=== PATIENT | female | born 1980 | race Caucasian/White ===

== ENCOUNTER 2018-06-15 19:20 | Emergency (ER) | payer BC, OTHER ==
[2018-06-15 19:26] VITALS: BP 114/63; PULSE 77; TEMP 98.7; BMI 38.0
--- NOTE | 2018-06-15 19:34 | PDOC ---
History of Present Illness - General History Source: Patient, Significant Other Exam Limitations: No Limitations - History of Present Illness Initial Comments: 06/15/18 19:50 The patient is a 37 year old female, with no significant PMH, who presents to the emergency department via walk-in with right ankle pain. The patient states she was at a friends house earlier today when she misstepped and twisted her right ankle. The patient states she was able to walk on her own and drive home s /p twisting her right ankle but reports pain with ambulation. The patient states when she returned home she iced and elevated her right ankle and experienced a pins and needles sensation in the right foot. The patient states she has sprained her right ankle many times in the past from basketball but has never experienced the pins and needles sensation so quickly after icing the injury so she decided to come to the ED for evaluation. The patient denies chest pain, shortness of breath, headache and dizziness. Denies fever, chills, nausea, vomit, diarrhea and constipation. Denies dysuria, frequency, urgency and hematuria. Allergies: NKA <Thomas Gallo - Last Filed: 06/15/18 21:00> <Anisha Salter - Last Filed: 06/16/18 00:02> - General Chief Complaint: Injury Stated Complaint: RT ANKLE INJURY Time Seen by Provider: 06/15/18 19:21 Past History <Thomas Gallo - Last Filed: 06/15/18 21:00> - Past Medical History COPD: No Other medical history: PT DENIES - Suicide/Smoking/Psychosocial Hx Smoking History: Never smoked Have you smoked in the past 12 months: No Information on smoking cessation initiated: No Hx Alcohol Use: No Substance Use Type: None <Anisha Salter - Last Filed: 06/16/18 00:02> - Past Medical History Allergies/Adverse Reactions: Allergies Allergy/AdvReac Type Severity Reaction Status Date / Time No Known Allergies Allergy Verified 06/15/18 19:22 Home Medications: Ambulatory Orders Ibuprofen 800 mg PO ONCE 06/15/18 Review of Systems - Review of Systems Comments:: 06/15/18 19:50 GENERAL/CONSTITUTIONAL: No fever or chills. No weakness. HEAD, EYES, EARS, NOSE AND THROAT: No change in vision. No ear pain or discharge. No sore throat. CARDIOVASCULAR: No chest pain or shortness of breath. RESPIRATORY: No cough, wheezing, or hemoptysis. GASTROINTESTINAL: No nausea, vomiting, diarrhea or constipation. GENITOURINARY: No dysuria, frequency, or change in urination. MUSCULOSKELETAL: +Right ankle pain. No neck or back pain. SKIN: No rash NEUROLOGIC: +Pins and needles sensation right ankle/ right foot. No headache, vertigo, loss of consciousness. ENDOCRINE: No increased thirst. No abnormal weight change. HEMATOLOGIC/LYMPHATIC: No anemia, easy bleeding, or history of blood clots. ALLERGIC/IMMUNOLOGIC: No hives or skin allergy. <Thomas Gallo - Last Filed: 06/15/18 21:00> *Physical Exam - Vital Signs Last Vital Signs Temp Pulse Resp BP Pulse Ox 98.7 F 77 16 114/63 99 06/15/18 19:20 06/15/18 19:20 06/15/18 19:20 06/15/18 19:20 06/15/18 19:20 - Physical Exam Comments: 06/15/18 20:17 GENERAL: Awake, alert, and fully oriented, in no acute distress HEAD: No signs of trauma EYES: PERRLA, EOMI, sclera anicteric, conjunctiva clear EXTREMITIES: (+) Right lower extremity normal until the ankle where this is moderate edema lateral of the malleolus with tenderness superior and medial to the malleolus. There is no ligamentous instability of the ankle joint. There is a strongly palpable pulse at the midfoot; distal foot, foot is warm with good capillary refill. Neurovascular intact. (+) Mild tenderness at the base of the 5th metatarsal. No ecchymosis or deformity noted in the ankle or foot. No clubbing or cyanosis. NEUROLOGICAL: Cranial nerves II through XII grossly intact. Normal speech. SKIN: Warm, Dry, normal turgor, no rashes or lesions noted. <Thomas Gallo - Last Filed: 06/15/18 21:00> - Vital Signs Last Vital Signs Temp Pulse Resp BP Pulse Ox 98.7 F 77 16 114/63 99 06/15/18 19:20 18 19:20 06/15/18 19:20 06/15/18 19:20 06/15/18 19:20 <Anisha Salter - Last Filed: 06/16/18 00:02> Progress Note - Progress Note Progress Note: Documentation has been prepared under my direction and personally reviewed by me in its entirety. I attest that this documented accurately reflects all work, treatment, procedures and medical decision making performed by me. <Anisha Salter - Last Filed: 06/16/18 00:02> Medical Decision Making - Medical Decision Making As noted above, this 37-year-old woman with no significant past medical history but multiple episodes of ankle sprains bilaterally presents with history of turning her right ankle earlier today when she missed a step. Since then, she has had pain on weightbearing and plantar flexion of the right foot. The lateral malleolus of the ankle has become moderately edematous and mildly tender ; there has been no ecchymosis or deformity in the ankle or foot. Exam as noted. X-rays of the right ankle/foot performed. Preliminary interpretation by me-no evidence of fracture or dislocation. Clinical presentation most consistent with ankle sprain. Dipak wrap applied followed by ankle stirrup splint (Velcro attached). The patient will be given crutches; because of her previous history of ankle sprains, she is comfortable with crutch ambulation. This was demonstrated prior to discharge when she was able to ambulate without difficulty using the crutches. Meanwhile, the patient should elevate and ice the elbow/foot area as much as possible over the next 2 days. She should follow-up with her orthopedist, if she has prolonged swelling/pain in the ankle or foot <Anisha Salter - Last Filed: 06/16/18 00:02> *DC/Admit/Observation/Transfer - Attestations Scribe Attestion: 06/15/18 19:51 Documentation prepared by Thomas Gallo, acting as medical care evaluation specialist for Anisha Salter MD. <Thomas Gallo - Last Filed: 06/15/18 21:00> <Anisha Salter - Last Filed: 06/16/18 00:02> Diagnosis at time of Disposition: Ankle sprain Qualifiers: Encounter type: initial encounter Involved ligament of ankle: tibiofibular ligament Laterality: right Qualified Code(s): S93.431A - Sprain of tibiofibular ligament of right ankle, initial encounter - Discharge Dispostion Disposition: HOME Condition at time of disposition: Stable - Referrals Referrals: Alisa Eubanks MD [Primary Care Provider] - Simeon Denton MD [Staff Physician] - - Patient Instructions Printed Discharge Instructions: Ankle Sprain Additional Instructions: elevate and ice to ankle as much as possible for the next 2 days Ankle splint during day for the next 5-7 days/Dipak wrap during the day as needed crutches as needed for ambulation for the next 3 days Ibuprofen/naproxen as needed for pain If you continue to have pain/swelling for more than 7-10 days, follow-up with Dr. Denton Return to ER as needed - Post Discharge Activity
== END 2018-06-15 20:56 | disposition home or self-care (01) ==
LOC: FER 19:20
PROC: 2W3QX1Z Immobilization of Right Lower Leg using Splint (ICD-10-PCS; principal; 2018-06-15)
DX: S93.431A Sprain of tibiofibular ligament of right ankle, initial encounter (principal); X58.XXXA Exposure to other specified factors, initial encounter; Y93.89 Activity, other specified; Y92.9 Unspecified place or not applicable
CPT/HCPCS: 73610-TC-RT-FY; 73630-TC-RT-FY; 84703; 99283-25

== ENCOUNTER 2021-03-27 01:12 | Inpatient (IN) | payer BC ==
[2021-03-27] MEDS ORDERED: FAMOTIDINE 20 MG/50 ML IVPB 20 MG/50 ML MG IVPB ONE ×4 (01:16→14:10)
[2021-03-27] MEDS ORDERED: DEXAMETHASONE SOD PHOSPHATE 10 MG/1 ML VIAL ONE (01:16)
[2021-03-27] MEDS ORDERED: DEXAMETHASONE SOD PHOSPHATE 10 MG/1 ML VIAL IVPUSH ONE (01:16)
[2021-03-27] MEDS ORDERED: EPINEPHrine 1:1,000 0.3 MG/0.3 ML SYR IM ONE (01:16)
[2021-03-27] MEDS ORDERED: EPINEPHrine 1:10,000 (P-F SYR) 1 MG/10 ML DISP.SYRIN ONE (01:27)
[2021-03-27 01:28] VITALS: BMI 30.4
[2021-03-27 01:30] LABS: BASO % 0.7 % (0-2.0); EOS % 0.6 % (0-4.5); HEMATOCRIT 44.8 % (32.4-45.2); HEMOGLOBIN 15.4 GM/dL (10.7-15.3); LYMPH % 50.2 % (8-40); MCH 31.2 pg (25.7-33.7); MCHC 34.4 g/dl (32.0-36.0); MEAN CELL VOLUME 90.8 fl (80-96); MEAN PLT VOLUME 8.3 fl (7.5-11.1); MONO % 5.3 % (3.8-10.2); NEUT % 43.2 % (42.8-82.8); PLATELET COUNT 294 K/MM3 (134-434); RBC 4.93 M/mm3 (3.60-5.2); WHITE BLOOD COUNT 9.8 K/mm3 (4.0-10.0)
[2021-03-27] MEDS ORDERED: SODIUM CHLORIDE 0.9% 500 ML INFUS.BAG IV ONE (01:33)
[2021-03-27 01:35] LABS: INR 0.97 (0.83-1.09); PROTHROMBIN TIME (PATIENT) 11.7 SEC (9.7-13.0)
[2021-03-27 01:37] LABS: ACTIVATED PTT 25.6 SECONDS (25.2-36.5)
[2021-03-27 01:50] LABS: CHLORIDE 111 mmol/L (98-107); SODIUM 136 mmol/L (136-145)
[2021-03-27 01:52] LABS: ALBUMIN 3.6 g/dl (3.4-5.0); BLOOD UREA NITROGEN 13.2 mg/dL (7-18); CO2 20 mmol/L (21-32)
[2021-03-27 01:53] LABS: GLUCOSE,RANDOM 95 mg/dL (74-106)
[2021-03-27 01:55] LABS: SGOT/AST 47 U/L (15-37); SGPT/ALT 28 U/L (13-61)
[2021-03-27 01:56] LABS: CREATININE 0.7 mg/dL (0.55-1.3)
[2021-03-27 01:57] LABS: BILIRUBIN,TOTAL 0.2 mg/dL (0.2-1); TOT PROT 7.8 g/dl (6.4-8.2)
[2021-03-27 01:58] LABS: ALK PHOS 77 U/L (45-117)
[2021-03-27] MEDS ORDERED: EPINEPHrine 1:10,000 (P-F SYR) 1 MG/10 ML DISP.SYRIN IVPUSH ONE ×2 (02:00→02:12)
[2021-03-27 02:14] LABS: ANION GAP 5 MMOL/L (8-16)
[2021-03-27] MEDS ORDERED: SODIUM CHLORIDE 1,000 ML IV SCH (03:30)
[2021-03-27 03:56] LABS: BLOOD UREA NITROGEN 13.1 mg/dL (7-18); CALCIUM 7.8 mg/dL (8.5-10.1)
[2021-03-27 03:59] LABS: CREATININE 0.8 mg/dL (0.55-1.3)
[2021-03-27 06:03] LABS: BASO % 0.1 % (0-2.0); HEMATOCRIT 38.6 % (32.4-45.2); HEMOGLOBIN 13.6 GM/dL (10.7-15.3); LYMPH % 6.2 % (8-40); MCH 31.4 pg (25.7-33.7); MCHC 35.1 g/dl (32.0-36.0); MEAN CELL VOLUME 89.4 fl (80-96); MEAN PLT VOLUME 7.9 fl (7.5-11.1); MONO % 1.8 % (3.8-10.2); NEUT % 91.9 % (42.8-82.8); PLATELET COUNT 241 K/MM3 (134-434); RBC 4.32 M/mm3 (3.60-5.2); RDW 13.2 % (11.6-15.6); WHITE BLOOD COUNT 10.8 K/mm3 (4.0-10.0)
[2021-03-27 06:23] LABS: BLOOD UREA NITROGEN 13.2 mg/dL (7-18); CALCIUM 7.4 mg/dL (8.5-10.1)
[2021-03-27 06:24] LABS: ALBUMIN 3.3 g/dl (3.4-5.0); MAGNESIUM 1.8 mg/dL (1.8-2.4)
[2021-03-27 06:27] LABS: CREATININE 0.7 mg/dL (0.55-1.3); PHOSPHOROUS 2.5 mg/dL (2.5-4.9)
[2021-03-27 06:28] LABS: BILIRUBIN,TOTAL 0.2 mg/dL (0.2-1); TOT PROT 6.6 g/dl (6.4-8.2)
[2021-03-27 07:01] VITALS: TEMP 98.5
[2021-03-27 09:18] LABS: ANISOCYTOSIS 0; MACROCYTOSIS 0; PLATELET ESTIMATE NORMAL
[2021-03-27] MEDS ORDERED: MUPIROCIN 2% TOPICAL OINTMENT FOR DECOLONIZATION NS SCH (10:00)
[2021-03-27] MEDS ORDERED: methylPREDNISolone NA SUCC 40 MG/1 ML VIAL IVPUSH ONE (13:27)
[2021-03-27] MEDS ORDERED: methylPREDNISolone NA SUCC 125 MG/2 ML VIAL IVPUSH SCH (13:45)
[2021-03-27] MEDS ORDERED: methylPREDNISolone NA SUCC 40 MG/1 ML VIAL ONE (14:10)
[2021-03-27 16:10] VITALS: BP 115/78; PULSE 63
[2021-03-27] MEDS ORDERED: CHLORHEXIDINE GLUCONATE 4% CLEANSER FOR DECOLONIZATION TP SCH (22:00)
== END 2021-03-27 16:29 | disposition home or self-care (01) | DRG 916 ==
LOC: JER 01:12 → JERBED 02:08
PROVIDERS: ADMIT Hospitalist; ATTEND Student in an Organized Health Care Education/Training Program
DX: T78.2XXA Anaphylactic shock, unspecified, initial encounter (principal); L50.8 Other urticaria
CPT/HCPCS: 36415; 80048; 80053; 83735; 84100; 85025; 85610; 85730; 93005; 93010; 99291; C9803; J1100; U0003; U0005

== ENCOUNTER 2022-07-13 14:04 | Emergency (ER) | payer BC, OTHER ==
[2022-07-13 14:15] VITALS: BP 107/64; PULSE 83; RESP 20; TEMP 98.1; BMI 28.8
== END 2022-07-13 16:31 | disposition home or self-care (01) ==
LOC: FER 14:04
DX: S06.0X0A Concussion without loss of consciousness, initial encounter (principal); S09.93XA Unspecified injury of face, initial encounter; W50.0XXA Accidental hit or strike by another person, initial encounter
CPT/HCPCS: 70486-TC; 81025; 99284-25